=== PATIENT | female | born 1950 | race Caucasian/White ===

== ENCOUNTER → 2016-06-29 | Outpatient (CLI) | payer MEDICARE ==
[2016-06-29 14:13] LABS: CH 34.5; CHCM 33.5; HCT 43.7 % (34.0-46.0); HDW 2.25; HGB 14.5 gm/dL (11.4-16.0); MCH 34.3 pg (25.0-35.0); MCHC 33.2 g/dL (31.0-37.0); MCV 103.4 fL (80.0-100.0); Macrocytosis Slight; Mean Platelet Volume 7.1; RBC 4.23 m/uL (3.80-5.40); RDW 13.7 % (11.5-15.5); WBC 6.3 k/uL (3.8-10.6)
[2016-06-29 14:28] LABS: Anion Gap 9 mmol/L; Blood Urea Nitrogen 15 mg/dL (7-17); Carbon Dioxide 28 mmol/L (22-30); Chloride 103 mmol/L (98-107); Non-African American GFR(MDRD) >60 (>60 ml/min/1.73 sqM); Potassium 4.1 mmol/L (3.5-5.1); Sodium 140 mmol/L (137-145)
== END | disposition home or self-care (01) ==
LOC: LABWHC1 13:20
PROVIDERS: ATTEND Internal Medicine Cardiovascular Disease
DX: Z01.818 Encounter for other preprocedural examination (principal); I25.5 Ischemic cardiomyopathy
CPT/HCPCS: 36415; 80051; 82565; 84520; 85027

== ENCOUNTER 2016-07-11 09:40 | Day surgery (SDC) | payer MEDICARE ==
[2016-07-08 10:40] VITALS: BMI 28.3
[~2016-07-11 09:40] MED LIST: HYDROmorphone 1 MG/ML 1 ML SYRINGE IVP PRN; ONDANSETRON 4 MG/2 ML VIAL IVP ONE; ceFAZolin 1,000 MG in SODIUM CHLORIDE 0.9% IRRIGATIO 250 ML IRRIGATION ONE; ceFAZolin 2 GM in SODIUM CHLORIDE 0.9% 100 ML IVPB ONE
[2016-07-11] MEDS: LACTATED RINGERS 1,000 ML IV SCH (10:14)
[2016-07-11] MEDS ORDERED: SODIUM CHLORIDE 0.9% 1,000 ML IV ONE (10:15)
[2016-07-11] MEDS ORDERED: LIDOCAINE 1% INJ 10MG/ML (20 ML MDV) ONE (11:18)
[2016-07-11] MEDS ORDERED: PROPOFOL 10 MG/ML 20 ML VIAL IV ONE (11:18)
[2016-07-11] MEDS ORDERED: ePHEDrine 50 MG/ML 1 ML AMP ONE (11:18)
[2016-07-11] MEDS ORDERED: fentaNYL (PF) 50 MCG/ML 2 ML AMP ONE (11:18)
[2016-07-11] MEDS ORDERED: MIDAZOLAM 2 MG/2 ML VIAL ONE (11:18)
[2016-07-11] MEDS ORDERED: IOHEXOL 350 MG/ML 50ML BOTTLE INJ ONE (11:30)
[2016-07-11] MEDS ORDERED: IV FLUID CONTINUATION 900 ML IV ONE (11:30)
[2016-07-11] MEDS ORDERED: LIDOCAINE 1% INJ 10MG/ML (20 ML MDV) SQ ONE (11:49)
[2016-07-11] MEDS ORDERED: ACETAMINOPHEN TAB 325 MG TAB PO PRN (12:55)
--- NOTE | 2016-07-11 13:09 | P.PCN ---
Date of Procedure: 07/11/16 Preoperative Diagnosis: Ischemic cardiomyopathy Postoperative Diagnosis: The same Procedure(s) Performed: Prophylactic AICD implantation Description of Procedure: HISTORY: This patient is a 66-year-old female with history of ischemic cardiomyopathy with ejection fraction of 30%. Patient is referred for prophylactic AICD implantation. CONSENT:I have discussed the risks, benefits and alternative therapies for the above-mentioned procedure and for both sedation/analgesia as well as necessary blood product administration, if indicated, as they pertain to this patient. The patient has indicated understanding and acceptance of the risks and procedures discussed. PROCEDURE: Patient was brought to the lab in a fasting state. Patient was prepped and draped in the usual fashion. Patient was given IV sedation with fentanyl and Versed. The skin below the left clavicle was infiltrated with lidocaine. An incision was made parallel to deltopectoral groove was deepened until the pectoral fascia was exposed. A pocket was created by blunt dissection and cautery. Axillary venography was performed to delineate the course of the axillary vein. one stick were performed into extrathoracic portion of the axillary vein and 1sheath was advanced over the guidewires and left in subclavian vein. LEADS: VENTRICULAR: This is manufactured by [employer]. Model number is 0292 and the serial number is [id number]. THE DEVICE: This is manufactured by [employer]. He did model number is D150. Serial number is [id number]. The ventricular lead is maneuvered l with help of a straight and curved stylets into the left ventricle apical region. Satisfactory position was obtained and threshold measurements were made. The atrial lead was then maneuvered into the right atrial appendage. And thresholds were obtained. THRESHOLDS: VENTRICLE : The minimal patient threshold was 0.6 at pulse width of 0.5 ms. R waves 8.2 mV. The impedance is 6 and 95 ohms. The shock impedance is 69. The lead and pulse generator remained in the pocket after it was washed with antibiotics. Pocket was closed in the usual fashion. The fascia was closed with 2-0 Prolene ,the subcutaneous tissue was closed with 3-0 Prolene and the skin was closed with 4-0 Prolene. DFT TESTING: Patient was given deep sedation by department of anesthesia. DFT testing was performed initially with 11 J and also 21 J after inducing V. tach with T shock. This did not convert patient to into sinus rhythm. External defibrillator was used for conversion. Subsequently new site was found and repeat DFT testing was performed and at 21 J successfully converted patient to sinus rhythm. V. tach was induced with T shock. Patient tolerated the procedure very well and PROGRAMMING: KEEGAN PACING: MODE: VVI mode RATE: 40 OUTPUT: ventricle: 3.5 TACHYCARDIA THERAPY: V. TACH: The rate is 1 75 bpm. ATP therapies programmed followed by shocks of 21 J 1 followed by 31 J followed with 41 J 6. Line VF ZONE: This is programmed to a rate of 205. The therapies are programmed to 31 J followed by 41 J 7. FINAL IMPRESSION: #1. Successful Implantation of single-chamber single coil AICD #2. AXILLARY VENOGRAPHY COMPLICATIONS: Nil PLAN: Continue to monitor her on the telemetry unit. Continue prophylactic antibiotics. Chest x-ray in the morning. If patient's remains stable will discharge patient home tomorrow.
[2016-07-11] MEDS: SODIUM CHLORIDE 0.9% 1,000 ML IV SCH (16:22)
[2016-07-11] MEDS: ceFAZolin 2 GM in SODIUM CHLORIDE 0.9% 100 ML IVPB SCH ×2 (17:08→22:26)
[2016-07-11] MEDS: METOPROLOL TARTRATE 25 MG TAB PO SCH (20:33)
[2016-07-11] MEDS ORDERED: ATORVASTATIN 80 MG TAB PO SCH (21:00)
[2016-07-12] MEDS: LACTATED RINGERS 1,000 ML IV SCH (06:51)
[2016-07-12] MEDS: SODIUM CHLORIDE 0.9% 1,000 ML IV SCH (06:51)
[2016-07-12] MEDS: ceFAZolin 2 GM in SODIUM CHLORIDE 0.9% 100 ML IVPB SCH ×2 (06:51→10:40)
--- NOTE | 2016-07-12 08:31 | XR ---
EXAMINATION TYPE: XR chest 2V DATE OF EXAM: 07/12/2016 6:16 AM COMPARISON: 05/19/2012 TECHNIQUE: PA and lateral views submitted. HISTORY: Lead placement check FINDINGS: The lungs are clear and there is no pneumothorax, pleural effusion, or focal pneumonia. Hypertrophi c degenerative change of the spine, postoperative change and cardiac device noted with the lead overl jeffery the region of the right ventricle. Atherosclerotic change aorta. Prominence the pulmonary arteries are stable suggestive of pulmonary ar terial hypertension. IMPRESSION: 1. No acute process. Cardiac lead appears in good position. 2. Prominence of the hilum and pulmonary arteries bilaterally correlate for pulmonary arterial hypert ension. Follow-up CT scan could be obtained.
[2016-07-12] MEDS ORDERED: NON-FORMULARY DRUG (Calcium/Magnesium/Zinc [Calcium-Magnesium-Zinc Tablet] 1 EACH) PO SCH (09:00)
[2016-07-12] MEDS ORDERED: LISINOPRIL 5 MG TAB PO SCH (09:00)
[2016-07-12] MEDS: METOPROLOL TARTRATE 25 MG TAB PO SCH (09:15)
--- NOTE | 2016-07-12 09:56 | P.DS ---
Providers Expected date of discharge: 07/12/16 Attending physician: Isauro Ordoñez Primary care physician: Hieu Campoverde - Discharge Diagnosis(es) (1) Ischemic cardiomyopathy Current Visit: Yes Status: Acute (2) AICD (automatic cardioverter/defibrillator) present Current Visit: Yes Status: Acute Hospital Course: This patient with history of ischemic cardiomyopathy was brought in for elective AICD implantation. Patient had procedure done yesterday. Patient tolerated the procedure well. Initial position did not reveal satisfactory. DFT threshold. Subsequently a new position was found, and DFT testing showed satisfactory threshold. Patient has remained stable overnight. Denies any chest pain, shortness of breath, dizziness or syncope. No arrhythmias were detected. Chest x-ray shows proper lead position. There is no evidence of pneumothorax. Thresholds remained stable. Patient site shows some puffiness and possible mild hematoma. Patient is advised to keep the area dry. She is advised not to lift left arm above the shoulder level. No heavy lifting, pushing, pulling or driving. She will be sent home on home medication. Aspirin to be held until patient's in the office. Patient's have follow-up in the office in one week. The rest of the medication be continued. She is also being put on Keflex 500 mg by mouth 3 times a day. Follow-up with Dr. Izquierdo. Plan - Discharge Summary New Discharge Prescriptions: Cephalexin [Keflex] 500 mg PO Q8HR #10 cap Discharge Medication List Atorvastatin [Lipitor] 80 mg PO HS 07/08/16 [History] Calcium/Magnesium/Zinc [Ivjgbgi-Akhctbzdz-Yzty Tablet] 1 each PO DAILY 07/08/16 [History] Lisinopril [Zestril] 5 mg PO QAM 07/08/16 [History] Metoprolol Tartrate 25 mg PO BID 07/08/16 [History] Multivitamins, Thera [Multivitamin (formulary)] 1 tab PO DAILY 07/08/16 [History ] Cephalexin [Keflex] 500 mg PO Q8HR #10 cap 07/12/16 [Rx] Follow up Appointment(s)/Referral(s): Kavon Izquierdo MD [STAFF PHYSICIAN] - 1 Week Discharge Disposition: HOME SELF-CARE
[2016-07-12] MEDS ORDERED: MULTIVITAMINS, THERA 1 EACH TAB PO SCH (12:00)
[2016-07-12 12:47] VITALS: BP 110/63; PULSE 62; RESP 16; TEMP 98.1
== END 2016-07-12 13:20 | disposition home or self-care (01) ==
LOC: CATHEP 09:40 → 3OBS 12:55 → CATHEP 07-12 13:20
PROVIDERS: ATTEND Internal Medicine Cardiovascular Disease
DX: I25.5 Ischemic cardiomyopathy (principal); Z00.6 Encounter for examination for normal comparison and control in clinical research program; I65.23 Occlusion and stenosis of bilateral carotid arteries; Z82.49 Family history of ischemic heart disease and other diseases of the circulatory system; E78.5 Hyperlipidemia, unspecified; I10 Essential (primary) hypertension; Z79.82 Long term (current) use of aspirin; Z79.899 Other long term (current) drug therapy
CPT/HCPCS: 93641; 33249; 71020; C1895; C1722; J2250; J0690 ×3; J2001; J3010; J2704; Q9967

== ENCOUNTER 2017-03-15 13:08 | Emergency (ER) | payer MEDICARE ==
[2017-03-15] MEDS ORDERED: SODIUM CHLORIDE 0.9% 500 ML IV STA (14:06)
--- NOTE | 2017-03-15 14:17 | ED ---
General Adult HPI - General Chief complaint: Weakness Stated complaint: Weakness/ Pt has defibaltor Time Seen by Provider: 03/15/17 13:57 Source: patient Mode of arrival: wheelchair Limitations: no limitations - History of Present Illness Initial comments: This is a 66-year-old female with a history of CAD, CHF, CAD who presents here in [facility] for generalized fatigue. She states that it's been going on for the last month however worsen over the last week. She states that she's had it intermittently for "a while ". She states that it just seems to be constant now and worse. She has not had this worked up in the past however she has mentioned it to her primary doctor in the past. She states that at times she feels so weak that she cannot even stand up. She has to sit down. She states that her energy just feels drained from her body. She has no focal weakness. Denies any headaches or head trauma. Does admit to a little bit of some neck and back pain which is also been going on for the last month. Denies any nausea , vomiting, or diarrhea. No dysuria or hematuria. Has a normal amount of urine output. Denies any lower extremity swelling or pain. Does admit to cold intolerance. Denies any other acute complaints. - Related Data Home Medications Medication Instructions Recorded Confirmed Atorvastatin [Lipitor] 80 mg PO HS 07/08/16 03/15/17 Lisinopril [Zestril] 5 mg PO DAILY 07/08/16 03/15/17 Metoprolol Tartrate 25 mg PO BID 07/08/16 03/15/17 ALPRAZolam [Xanax] 0.5 mg PO TID PRN 03/15/17 03/15/17 Allergies Allergy/AdvReac Type Severity Reaction Status Date / Time No Known Allergies Allergy Verified 03/15/17 14:39 Review of Systems ROS Statement: Those systems with pertinent positive or pertinent negative responses have been documented in the HPI. ROS Other: All systems not noted in ROS Statement are negative. Past Medical History Past Medical History: COPD, Myocardial Infarction ([place]) History of Any Multi-Drug Resistant Organisms: None Reported Past Surgical History: Heart Catheterization With Stent Additional Past Surgical History / Comment(s): Open heart surgery, defibrilator placement Past Psychological History: No Psychological Hx Reported Smoking Status: Never smoker Past Alcohol Use History: Rare Past Drug Use History: None Reported General Exam - General Exam Comments Initial Comments: Constitutional: Awake alert Appears comfortable Head: Normocephalic atraumatic Eyes: no conjunctival injection No scleral icterus EOMI pupils are 4 mm reactive bilaterally ENT: TMs clear bilaterally, oropharynx is not erythematous Neck: No JVD Supple Heart: Regular rate rhythm normal S1-S2 no murmurs Lungs: Clear to auscultation bilaterally No wheezing No rales Abdomen: Soft nondistended nontender Extremities: Non edematous DP pulses intact Radial pulses intact Neuro: A&Ox3, cranial nerves II through XII are grossly intact, 5 out of 5 strength in upper and lower extremities bilaterally, sensation intact in all extremities, normal finger to nose and heel to riggs testing No focal neurologic deficits Psych: Appropriate mood and affect Limitations: no limitations Course Vital Signs 03/15/17 13:18 Temperature 99.4 F Pulse Rate 67 Respiratory 18 Rate Blood Pressure 139/63 O2 Sat by Pulse 97 Oximetry EKG Findings - EKG Comments: EKG Findings:: EKG showing normal sinus rhythm with a rate of 63. There are no abnormal ST segment changes. There are T-wave inversions in V4 through V6 and there is artifact so it is difficult to determine extent of changes. QTC is 435. Other intervals are normal. No ectopy. Medical Decision Making - Medical Decision Making Is a 66-year-old female presents emergency department for generalized fatigue. Patient was evaluated and had no focal neurologic findings. Labwork was performed including a TSH which was not abnormal area the patient does have a known history of CHF with an EF of 30%. I'm wondering if she is having worsening heart function that's causing her fatigue. Told that she is to follow closely with her junior paralegal and possibly have a repeat echocardiogram performed. Otherwise she needs to call follow-up closely with her primary doctor for further evaluation of this. She can return if she has worsening or changing symptoms. All questions were answered. - Lab Data Result diagrams: 03/15/17 14:30 03/15/17 14:30 Lab Results 03/15/17 03/15/17 03/15/17 Range/Units 14:30 14:30 14:30 WBC 7.4 (3.8-10.6) k/uL RBC 4.33 (3.80-5.40) m/uL Hgb 14.2 (11.4-16.0) gm/dL Hct 44.6 (34.0-46.0) % MCV 103.1 H (80.0-100.0) fL MCH 32.8 (25.0-35.0) pg MCHC 31.8 (31.0-37.0) g/dL RDW 14.3 (11.5-15.5) % Plt Count 215 (150-450) k/uL Neutrophils % 63 % Lymphocytes % 26 % Monocytes % 6 % Eosinophils % 3 % Basophils % 1 % Neutrophils # 4.7 (1.3-7.7) k/uL Lymphocytes # 1.9 (1.0-4.8) k/uL Monocytes # 0.4 (0-1.0) k/uL Eosinophils # 0.2 (0-0.7) k/uL Basophils # 0.1 (0-0.2) k/uL Macrocytosis Slight PT (9.0-12.0) sec INR (<1.2) APTT (22.0-30.0) sec Sodium 142 (137-145) mmol/L Potassium 4.6 (3.5-5.1) mmol/L Chloride 103 (98-107) mmol/L Carbon Dioxide 28 (22-30) mmol/L Anion Gap 11 mmol/L BUN 19 H (7-17) mg/dL Creatinine 0.80 (0.52-1.04) mg/dL Est GFR (MDRD) Af Amer >60 (>60 ml/min/1.73 sqM) Est GFR (MDRD) Non-Af >60 (>60 ml/min/1.73 sqM) Glucose 96 (74-99) mg/dL Calcium 10.2 (8.4-10.2) mg/dL Magnesium 1.9 (1.6-2.3) mg/dL Total Bilirubin 0.4 (0.2-1.3) mg/dL AST 34 (14-36) U/L ALT 41 (9-52) U/L Alkaline Phosphatase 72 (38-126) U/L CK-MB (CK-2) 1.1 (0.0-2.4) ng/mL Troponin I <0.012 (0.000-0.034) ng/mL NT-Pro-B Natriuret Pep pg/mL Total Protein 7.5 (6.3-8.2) g/dL Albumin 4.6 (3.5-5.0) g/dL TSH 0.427 L (0.465-4.680) mIU/L Urine Color Urine Appearance (Clear) Urine pH (5.0-8.0) Ur Specific [place] (1.001-1.035) Urine Protein (Negative) Urine Glucose (UA) (Negative) Urine Ketones (Negative) Urine Blood (Negative) Urine Nitrite (Negative) Urine Bilirubin (Negative) Urine Urobilinogen (<2.0) mg/dL Ur Leukocyte Esterase (Negative) 03/15/17 03/15/17 03/15/17 Range/Units 14:30 14:30 14:30 WBC (3.8-10.6) k/uL RBC (3.80-5.40) m/uL Hgb (11.4-16.0) gm/dL Hct (34.0-46.0) % MCV (80.0-100.0) fL MCH (25.0-35.0) pg MCHC (31.0-37.0) g/dL RDW (11.5-15.5) % Plt Count (150-450) k/uL Neutrophils % % Lymphocytes % % Monocytes % % Eosinophils % % Basophils % % Neutrophils # (1.3-7.7) k/uL Lymphocytes # (1.0-4.8) k/uL Monocytes # (0-1.0) k/uL Eosinophils # (0-0.7) k/uL Basophils # (0-0.2) k/uL Macrocytosis PT 10.2 (9.0-12.0) sec INR 1.0 (<1.2) APTT 23.7 (22.0-30.0) sec Sodium (137-145) mmol/L Potassium (3.5-5.1) mmol/L Chloride (98-107) mmol/L Carbon Dioxide (22-30) mmol/L Anion Gap mmol/L BUN (7-17) mg/dL Creatinine (0.52-1.04) mg/dL Est GFR (MDRD) Af Amer (>60 ml/min/1.73 sqM) Est GFR (MDRD) Non-Af (>60 ml/min/1.73 sqM) Glucose (74-99) mg/dL Calcium (8.4-10.2) mg/dL Magnesium (1.6-2.3) mg/dL Total Bilirubin (0.2-1.3) mg/dL AST (14-36) U/L ALT (9-52) U/L Alkaline Phosphatase (38-126) U/L CK-MB (CK-2) (0.0-2.4) ng/mL Troponin I (0.000-0.034) ng/mL NT-Pro-B Natriuret Pep 708 pg/mL Total Protein (6.3-8.2) g/dL Albumin (3.5-5.0) g/dL TSH (0.465-4.680) mIU/L Urine Color Colorless Urine Appearance Clear (Clear) Urine pH 5.5 (5.0-8.0) Ur Specific [place] 1.002 (1.001-1.035) Urine Protein Negative (Negative) Urine Glucose (UA) Negative (Negative) Urine Ketones Negative (Negative) Urine Blood Negative (Negative) Urine Nitrite Negative (Negative) Urine Bilirubin Negative (Negative) Urine Urobilinogen <2.0 (<2.0) mg/dL Ur Leukocyte Esterase Negative (Negative) Disposition Clinical Impression: Fatigue Disposition: HOME SELF-CARE Condition: Stable Instructions: Fatigue (ED) Referrals: Hieu Campoverde DO [Primary Care Provider] - 1-2 days Kavon Izquierdo MD [STAFF PHYSICIAN] - 1-2 days
[2017-03-15 14:46] LABS: Basophils # (A) 0.1 k/uL (0-0.2); Basophils % (A) 1 %; Eosinophils # (A) 0.2 k/uL (0-0.7); Eosinophils % (A) 3 %; HCT 44.6 % (34.0-46.0); HGB 14.2 gm/dL (11.4-16.0); Lymphocytes # (A) 1.9 k/uL (1.0-4.8); Lymphocytes % (A) 26 %; MCH 32.8 pg (25.0-35.0); MCHC 31.8 g/dL (31.0-37.0); MCV 103.1 fL (80.0-100.0); Macrocytosis Slight; Mean Platelet Volume 7.3; Monocytes # (A) 0.4 k/uL (0-1.0); Monocytes % (A) 6 %; Neutrophils # (A) 4.7 k/uL (1.3-7.7); Neutrophils % (A) 63 %; Platelet Count 215 k/uL (150-450); RBC 4.33 m/uL (3.80-5.40); RDW 14.3 % (11.5-15.5); WBC 7.4 k/uL (3.8-10.6)
[2017-03-15 14:47] LABS: Appearance,Urine Clear (Clear); Bilirubin,Urine Negative (Negative); Blood,Urine Negative (Negative); Color,Urine Colorless; Glucose,Urine (UA) Negative (Negative); Ketones,Urine Negative (Negative); Leukocyte Esterase,Urine Negative (Negative); Nitrite,Urine Negative (Negative); PH, Urine 5.5 (5.0-8.0); Protein,Urine Negative (Negative); Specific Gravity,Urine 1.002 (1.001-1.035); Urobilinogen,Urine <2.0 mg/dL (<2.0)
--- NOTE | 2017-03-15 14:51 | XR ---
EXAMINATION TYPE: XR chest 2V DATE OF EXAM: 03/15/2017 COMPARISON: 07/12/2016 HISTORY: Fatigue and weakness. TECHNIQUE: Frontal and lateral views of the chest are obtained. FINDINGS: There is no focal air space opacity, pleural effusion, or pneumothorax seen. The cardiac silhouette size is mildly enlarged. Single lead left-sided cardiac device is seen with post CABG radha nges the chest. The osseous structures are intact. Multilevel mild degenerative changes of the thorac ic spine are noted as well as of the glenohumeral joints. There is redemonstration of hilar vascular prominence which again could correlate with underlying pulmonary hypertension. IMPRESSION: No acute cardiopulmonary process. Redemonstration of hilar prominence that may correlate with underlying pulmonary arterial hypertension.
[2017-03-15 15:04] LABS: ALT 41 U/L (9-52); AST 34 U/L (14-36); Albumin 4.6 g/dL (3.5-5.0); Alkaline Phosphatase 72 U/L (38-126); Anion Gap 11 mmol/L; Blood Urea Nitrogen 19 mg/dL (7-17); Calcium 10.2 mg/dL (8.4-10.2); Carbon Dioxide 28 mmol/L (22-30); Chloride 103 mmol/L (98-107); Glucose 96 mg/dL (74-99); Magnesium 1.9 mg/dL (1.6-2.3); Potassium 4.6 mmol/L (3.5-5.1); Sodium 142 mmol/L (137-145); Total Bilirubin 0.4 mg/dL (0.2-1.3); Total Protein 7.5 g/dL (6.3-8.2)
[2017-03-15 15:20] LABS: Partial Thromboplastin Time 23.7 sec (22.0-30.0); Prothrombin Time 10.2 sec (9.0-12.0)
[2017-03-15 15:22] LABS: Creatine Kinase MB 1.1 ng/mL (0.0-2.4); Troponin I <0.012 ng/mL (0.000-0.034)
[2017-03-15 16:12] LABS: T4, Free (Free Thyroxine) 1.09 ng/dL (0.78-2.19)
[2017-03-15 16:15] VITALS: BP 143/60; PULSE 62; RESP 20; TEMP 98.1
== END 2017-03-15 16:16 | disposition home or self-care (01) ==
LOC: EC 13:08
DX: R53.83 Other fatigue (principal); M54.2 Cervicalgia; M54.9 Dorsalgia, unspecified; R68.89 Other general symptoms and signs; I25.10 Atherosclerotic heart disease of native coronary artery without angina pectoris; I50.9 Heart failure, unspecified; I25.2 Old myocardial infarction; Z79.899 Other long term (current) drug therapy
CPT/HCPCS: 36415; 71046; 80053; 81003; 82553; 83735; 83880; 84439; 84443; 84484; 85025; 85610; 85730; 93005; 99285

== ENCOUNTER → 2017-09-05 | Outpatient (CLI) | payer MEDICARE ==
[2017-09-05 10:12] LABS: ALT 44 U/L (9-52); AST 32 U/L (14-36); Cholesterol 139 mg/dL (<200); HDL Cholesterol 58 mg/dL (40-60); LDL Cholesterol,Calculated 69 mg/dL (0-99); Triglycerides 58 mg/dL (<150)
== END | disposition home or self-care (01) ==
LOC: LABWHC1 09:02
PROVIDERS: ATTEND Internal Medicine Cardiovascular Disease
DX: E78.2 Mixed hyperlipidemia (principal)
CPT/HCPCS: 36415; 80061; 84450; 84460

== ENCOUNTER → 2018-02-21 | Outpatient (CLI) | payer MEDICARE ==
--- NOTE | 2018-02-21 11:24 | CT ---
EXAMINATION TYPE: CT angio abd aorta w/Runoff DATE OF EXAM: 02/21/2018 COMPARISON: None HISTORY: Aneurysm of artery of lower extremity, pseudoaneurysm of right femoral artery CT DLP: 1382.3 mGycm CONTRAST: CTA thoracic and abdominal aorta with 3-D reconstruction is performed and without and with IV Contras t, patient injected with 125 mL of Isovue 370. Contrast CTA of the abdominal aorta with runoff of the lower extremity arterial system was performed from the lung bases through the ankles and feet. 3-D reconstruction imaging obtained at a separate wo rkstation. ABDOMINAL AORTA: Aortoiliac stent graft is noted to be place. There is no evidence for endoleak. Kelley l arteries, SMA, celiac artery and CHELSEA are patent. Renal artery calcifications noted. Infrarenal abdo gurpreet aortic aneurysm measures 3.4 cm AP dimension. Iliac vessels: Common iliac arteries are patent bilaterally. There is diffuse plaque formation noted bilaterally of the bilateral common iliac arteries with 50% stenosis noted on the right and less than 50% on the left. Diffuse calcified plaque is noted of the external iliac arteries bilaterally with 5 0% diameter reduction noted proximal component on the right. Less than 30% stenosis noted left radiagraph operator al iliac artery. Internal iliac arteries are patent bilaterally. Diffuse atheromatous changes noted a s well. Femoral arteries: There is mass noted anterior to the right femoral artery which measures 4.6 x 5.5 c m. Precontrast Hounsfield unit measurement remains stable following administration of contrast at 66 Hounsfield units. This may reflect a thrombosed pseudoaneurysm or hematoma. Soft and calcified plaque noted of the bilateral femoral arteries with multifocal less than 30% stenosis seen bilaterally. Sup erficial femoral arteries demonstrate diffuse calcified plaque disease greatest distally left greater than right with 70% stenosis noted on the left and approximately 50% seen on the right. Popliteal arteries: Popliteal arteries are patent bilaterally with only mild plaque formation noted. Below the knee arteries: Trifurcation is patent bilaterally. Peroneal, anterior and posterior tibial arteries demonstrate mild calcific disease without evidence for hemodynamically significant stenosis. Limited runoff of the ankles and feet given timing of the contrast bolus. LIVER/GB- No significant abnormality is seen. PANCREAS- No significant abnormality is seen. SPLEEN- No significant abnormality is seen. ADRENALS- No significant abnormality is seen. KIDNEYS/BLADDER- No significant abnormality is seen. BOWEL- No Significant abnormality GENITAL ORGANS: No gross abnormality seen. LYMPH NODES- No greater than 1cm abdominal or pelvic lymph nodes are appreciated. OSSEOUS STRUCTURES- No significant abnormality is seen. OTHER- No significant abnormality is seen. IMPRESSION- 1. Aortoiliac stent graft without evidence for endoleak. Venetie Ira infrarenal abdominal aortic aneurysm as noted. 2. Suspect thrombosed right femoral artery pseudoaneurysm or hematoma. 3. Diffuse plaque disease as noted above.
== END | disposition home or self-care (01) ==
LOC: RADCTMAIN 08:42
PROVIDERS: ATTEND Surgery
DX: I70.202 Unspecified atherosclerosis of native arteries of extremities, left leg (principal); I70.291 Other atherosclerosis of native arteries of extremities, right leg; I71.4 Abdominal aortic aneurysm, without rupture; I72.4 Aneurysm of artery of lower extremity; I72.9 Aneurysm of unspecified site
CPT/HCPCS: 82565; 84520; 75635; 36415; Q9967

== ENCOUNTER → 2018-06-21 | Outpatient (CLI) | payer MEDICARE ==
--- NOTE | 2018-06-21 11:33 | CT ---
EXAMINATION TYPE: CT abdomen pelvis w con DATE OF EXAM: 06/21/2018 HISTORY: Nausea, vomiting, constipation, and generalized pain. CT DLP: 444.3mGycm Automated Exposure Control for Dose Reduction was Utilized. CONTRAST: CT scan of the abdomen and pelvis is performed with IV Contrast, patient injected with 100 mL of Isov ue 300. COMPARISON: None. FINDINGS: LUNG BASES: Minimal bibasilar subsegmental dependent atelectasis. Visualized portions of the heart ar e enlarged. LIVER/GB: There are few too small to accurately characterize hepatic lesions that are hypoattenuated measuring up to 6 mm. No greater than 1 cm hepatic mass. No intrahepatic biliary ductal dilatation. C holelithiasis. Hepatic steatosis is noted. This limits evaluation for hepatic masses. PANCREAS: No significant abnormality is seen. SPLEEN: No significant abnormality is seen. ADRENALS: No significant abnormality is seen. KIDNEYS: Punctate nonobstructing right midpole 3 mm calculus is present as seen on the prior as well as multiple other smaller renal arterial calculi on coronal images. Left renal calculus measures up t o 7 mm. Too small to accurately characterize left upper pole renal lesion is seen on image 20 measuri ng only 3 mm. No hydronephrosis of either kidney. Slight prominence of the right renal pelvis is unch anged from the prior. BOWEL: There are scattered colonic diverticula without pericolonic fat stranding. Mild degree retaine d colonic stool limits evaluation of the transverse descending as well as sigmoid colon. There is no dilated large or small bowel however there is bowel wall prominence of multiple loops of small bowel scattered in the mid and upper central abdomen. Appendix is air-filled and within normal limits of si ze. UTERUS/ADNEXA: Right ovarian lesion measures 2.6 x 3.0 cm, similar to the prior exam. LYMPH NODES: No greater than 1cm abdominal or pelvic lymph nodes are appreciated. OSSEOUS STRUCTURES: No significant abnormality is seen. VASCULATURE: There is redemonstration of an infrarenal abdominal aortic aneurysm measuring up to 4.0 x 3.6 cm, unchanged in size from the prior of 2018 when measured at a similar location. Aortobiiliac endovascular stent graft is again noted. OTHER: The previously seen 5.6 cm right inguinal mass has decreased in size now measuring up to 1.7 c m, likely representing a resolving hematoma with pseudoaneurysm less likely. IMPRESSION: 1. Multiple loops of centralized small bowel containing small bowel thickening in may relate to enter itis of infectious or inflammatory etiology. Lack of haustration of the descending colon and be seen in sequela of colitis or as a result of peristalsis. No dilated large bowel. Moderate fecal stasis. C olonic diverticulosis without evidence of acute diverticulitis. 2. Stable infrarenal abdominal aortic aneurysm with aortobiiliac endovascular stent graft. 3. Bilateral nonobstructing renal calculi. 4. Right superficial inguinal mass has markedly decreased from the prior and likely represents a near ly completely resolved hematoma or less likely pseudoaneurysm.
== END | disposition home or self-care (01) ==
LOC: RADCTMAIN 09:21
PROVIDERS: ATTEND Family Medicine
DX: K57.30 Diverticulosis of large intestine without perforation or abscess without bleeding (principal); N20.0 Calculus of kidney; R19.5 Other fecal abnormalities; I71.4 Abdominal aortic aneurysm, without rupture; Z95.828 Presence of other vascular implants and grafts
CPT/HCPCS: 82565; 84520; 74177; 36415; Q9967

== ENCOUNTER 2018-07-21 03:14 | Observation (INO) | payer MEDICARE ==
[2018-07-21 04:02] LABS: Basophils % (A) 0 %; Eosinophils # (A) 0.1 k/uL (0-0.7); Eosinophils % (A) 1 %; HCT 33.5 % (34.0-46.0); HGB 10.7 gm/dL (11.4-16.0); Lymphocytes # (A) 1.8 k/uL (1.0-4.8); Lymphocytes % (A) 15 %; MCH 31.7 pg (25.0-35.0); MCHC 31.9 g/dL (31.0-37.0); MCV 99.2 fL (80.0-100.0); Macrocytosis Slight; Mean Platelet Volume 6.7; Monocytes # (A) 0.6 k/uL (0-1.0); Monocytes % (A) 5 %; Neutrophils # (A) 9.5 k/uL (1.3-7.7); Neutrophils % (A) 78 %; Platelet Count 240 k/uL (150-450); RBC 3.38 m/uL (3.80-5.40); RDW 15.8 % (11.5-15.5); WBC 12.2 k/uL (3.8-10.6)
[2018-07-21] MEDS ORDERED: cloNIDine HCL 0.2 MG TAB PO STA (04:02)
[2018-07-21 04:11] LABS: Calcium 9.3 mg/dL (8.4-10.2); Potassium 4.1 mmol/L (3.5-5.1)
[2018-07-21 04:12] LABS: INR 1.1 (<1.2); Partial Thromboplastin Time 24.6 sec (22.0-30.0); Prothrombin Time 11.8 sec (9.0-12.0)
--- NOTE | 2018-07-21 04:14 | ED ---
ENT HPI - General Chief complaint: ENT Stated complaint: nose bleed Time Seen by Provider: 07/21/18 03:33 Source: patient Mode of arrival: ambulatory Limitations: no limitations - History of Present Illness Initial comments: This patient is a 68-year-old woman who presents with complaint of epistaxis. The patient states that the bleeding started yesterday in the morning. She states that she was seen at [facility] where she had a packing placed multiple times which slowed her bleeding. The patient states that over the course of yesterday and tonight she has continued to have a small amount of blood. She states she has coughed up some blood and she also believes she has swallowed some as she has passed some stool with what appears to be dark blood. MD complaint: epistaxis -: hour(s) (48) Location: nose Severity: mild Consistency: constant Improves with: other (Packing) Worsens with: none - Related Data Home Medications Medication Instructions Recorded Confirmed Atorvastatin [Lipitor] 80 mg PO HS 07/08/16 03/15/17 Lisinopril [Zestril] 5 mg PO DAILY 07/08/16 03/15/17 Metoprolol Tartrate 25 mg PO BID 07/08/16 03/15/17 ALPRAZolam [Xanax] 0.5 mg PO TID PRN 03/15/17 03/15/17 Allergies Allergy/AdvReac Type Severity Reaction Status Date / Time No Known Allergies Allergy Verified 07/21/18 03:23 Review of Systems ROS Statement: Those systems with pertinent positive or pertinent negative responses have been documented in the HPI. ROS Other: All systems not noted in ROS Statement are negative. Constitutional: Denies: fever, chills ENT: Reports: epistaxis Respiratory: Denies: cough, dyspnea Cardiovascular: Denies: chest pain, palpitations, syncope Gastrointestinal: Denies: abdominal pain, nausea, vomiting Musculoskeletal: Denies: back pain Skin: Denies: rash Neurological: Denies: headache, weakness, numbness Hematological/Lymphatic: Reports: other (Patient taking Plavix, has held this medication since yesterday.) Past Medical History Past Medical History: COPD, Myocardial Infarction ([place]) History of Any Multi-Drug Resistant Organisms: None Reported Past Surgical History: Heart Catheterization With Stent Additional Past Surgical History / Comment(s): Open heart surgery, defibrilator placement Past Psychological History: No Psychological Hx Reported Smoking Status: Current some day smoker Past Alcohol Use History: Rare Past Drug Use History: None Reported General Exam Limitations: no limitations General appearance: alert, in no apparent distress Head exam: Present: atraumatic, normocephalic ENT exam: Present: other (The patient has a balloon packing in the right naris. There is no active bleeding anteriorly. Inspection oropharynx reveals that there is clot hanging posteriorly but I do not see any active red blood.) Respiratory exam: Present: normal lung sounds bilaterally. Absent: respiratory distress, wheezes, rales, rhonchi, stridor Cardiovascular Exam: Present: regular rate, normal rhythm, normal heart sounds. Absent: systolic murmur, diastolic murmur, rubs, gallop GI/Abdominal exam: Present: soft. Absent: distended, tenderness, guarding, rebound, rigid Extremities exam: Present: normal inspection, normal capillary refill. Absent: pedal edema Neurological exam: Present: alert Skin exam: Present: warm, dry, intact, normal color. Absent: rash Course Vital Signs 07/21/18 07/21/18 07/21/18 03:17 03:30 03:50 Temperature 98.4 F Pulse Rate 42 L 81 Respiratory 18 19 Rate Blood Pressure 124/47 124/56 158/57 O2 Sat by Pulse 96 95 Oximetry 07/21/18 07/21/18 07/21/18 04:10 04:20 04:40 Temperature Pulse Rate 84 84 85 Respiratory 22 18 27 H Rate Blood Pressure 153/67 164/72 167/72 O2 Sat by Pulse 96 96 97 Oximetry 07/21/18 07/21/18 04:50 05:00 Temperature Pulse Rate 85 75 Respiratory 24 22 Rate Blood Pressure 168/71 168/71 O2 Sat by Pulse 96 94 L Oximetry Medical Decision Making - Medical Decision Making Patient is 68-year-old woman who continues to have slow ooze of blood following having had nasal packing. Case is discussed with Dr. Benitez who is on-call for ENT tonight. He will admit the patient to observation, and then will see the patient to continue evaluation and treatment. - Lab Data Result diagrams: 07/21/18 03:40 07/21/18 03:40 Lab Results 07/21/18 07/21/18 07/21/18 Range/Units 03:40 03:40 03:40 WBC 12.2 H (3.8-10.6) k/uL RBC 3.38 L (3.80-5.40) m/uL Hgb 10.7 L (11.4-16.0) gm/dL Hct 33.5 L (34.0-46.0) % MCV 99.2 (80.0-100.0) fL MCH 31.7 (25.0-35.0) pg MCHC 31.9 (31.0-37.0) g/dL RDW 15.8 H (11.5-15.5) % Plt Count 240 (150-450) k/uL Neutrophils % 78 % Lymphocytes % 15 % Monocytes % 5 % Eosinophils % 1 % Basophils % 0 % Neutrophils # 9.5 H (1.3-7.7) k/uL Lymphocytes # 1.8 (1.0-4.8) k/uL Monocytes # 0.6 (0-1.0) k/uL Eosinophils # 0.1 (0-0.7) k/uL Basophils # 0.0 (0-0.2) k/uL Macrocytosis Slight PT (9.0-12.0) sec INR (<1.2) APTT (22.0-30.0) sec Sodium 137 (137-145) mmol/L Potassium 4.1 (3.5-5.1) mmol/L Chloride 108 H (98-107) mmol/L Carbon Dioxide 20 L (22-30) mmol/L Anion Gap 9 mmol/L BUN 40 H (7-17) mg/dL Creatinine 0.88 (0.52-1.04) mg/dL Est GFR (CKD-EPI)AfAm 78 (>60 ml/min/1.73 sqM) Est GFR (CKD-EPI)NonAf 68 (>60 ml/min/1.73 sqM) Glucose 106 H (74-99) mg/dL Calcium 9.3 (8.4-10.2) mg/dL Blood Type O Positive Blood Type Recheck No Antibody Screen NEGATIVE Spec Expiration Date 07/24/2018 - 233907/21/18 Range/Units 03:40 WBC (3.8-10.6) k/uL RBC (3.80-5.40) m/uL Hgb (11.4-16.0) gm/dL Hct (34.0-46.0) % MCV (80.0-100.0) fL MCH (25.0-35.0) pg MCHC (31.0-37.0) g/dL RDW (11.5-15.5) % Plt Count (150-450) k/uL Neutrophils % % Lymphocytes % % Monocytes % % Eosinophils % % Basophils % % Neutrophils # (1.3-7.7) k/uL Lymphocytes # (1.0-4.8) k/uL Monocytes # (0-1.0) k/uL Eosinophils # (0-0.7) k/uL Basophils # (0-0.2) k/uL Macrocytosis PT 11.8 (9.0-12.0) sec INR 1.1 (<1.2) APTT 24.6 (22.0-30.0) sec Sodium (137-145) mmol/L Potassium (3.5-5.1) mmol/L Chloride (98-107) mmol/L Carbon Dioxide (22-30) mmol/L Anion Gap mmol/L BUN (7-17) mg/dL Creatinine (0.52-1.04) mg/dL Est GFR (CKD-EPI)AfAm (>60 ml/min/1.73 sqM) Est GFR (CKD-EPI)NonAf (>60 ml/min/1.73 sqM) Glucose (74-99) mg/dL Calcium (8.4-10.2) mg/dL Blood Type Blood Type Recheck Antibody Screen Spec Expiration Date - EKG Data -: EKG Interpreted by Al EKG shows normal: sinus rhythm (With bigeminy, rate 77 bpm), axis (Normal), intervals (KS interval 182 ms, QTC 506 ms, both normal. QRS duration 122 ms, prolonged.), QRS complexes (Nonspecific intraventricular conduction delay.), ST- T waves (There are T inversions anterolaterally.) Rate: normal (Rate 77 bpm) Disposition Clinical Impression: Epistaxis, Anemia Disposition: ADMITTED IP TO THIS [facility] Condition: Fair Is patient prescribed a controlled substance at d/c from ED?: No Referrals: Hieu Campoverde DO [Primary Care Provider] - 1-2 days
[2018-07-21] MEDS ORDERED: ONDANSETRON ODT 4 MG TAB PO STA (04:45)
[2018-07-21] MEDS ORDERED: ALPRAZolam 0.25 MG TAB PO STA (05:27)
[2018-07-21] MEDS ORDERED: ACETAMINOPHEN TAB 325 MG TAB PO PRN (05:57)
[2018-07-21] MEDS ORDERED: NALOXONE 0.4 MG/ML 1 ML VIAL IV PRN (05:57)
[2018-07-21] MEDS ORDERED: ONDANSETRON 4 MG/2 ML VIAL IVP PRN (05:57)
[2018-07-21] MEDS ORDERED: ALPRAZolam 0.5 MG TAB PO PRN (05:58)
[2018-07-21] MEDS ORDERED: HYDROcodone/APAP 5-325MG 1 EACH TAB PO PRN (05:58)
[2018-07-21] MEDS ORDERED: SODIUM CHLORIDE 0.9% 1,000 ML IV SCH (06:00)
[2018-07-21 08:30] VITALS: BP 105/53; PULSE 42; RESP 16; TEMP 98.6
[2018-07-21] MEDS ORDERED: LISINOPRIL 5 MG TAB PO SCH (09:00)
[2018-07-21] MEDS ORDERED: METOPROLOL TARTRATE 25 MG TAB PO SCH (09:00)
[2018-07-21 09:04] VITALS: BMI 25.6
[2018-07-21] MEDS ORDERED: ATORVASTATIN 80 MG TAB PO SCH (21:00)
--- NOTE | 2018-07-23 07:17 | HP ---
HISTORY AND PHYSICAL DATE OF ADMISSION: 07/21/2018. DATE OF DISCHARGE: 07/21/2018. ADMITTING DIAGNOSIS: Right epistaxis. CHIEF COMPLAINT: Right-sided nose bleed. HISTORY OF PRESENT ILLNESS: This patient is a 68-year-old female who states that approximately 2 days prior to her admission that she started having a small intermittent nosebleed. Eventually the bleeding became significant and she was seen in the emergency room on the early a.m. on 07/21/2018 and at that time, the emergency room physician inserted a Epistat nasal balloon in the right nasal chamber and admitted the patient to the observation unit. I was subsequently consulted to see the patient. The patient states that she does not have a history of recurrent nosebleeds. She has not been on any type of blood thinners. In addition to this, she is a nonsmoker. The patient was admitted and placed on the appropriate intravenous and fluids. PAST MEDICAL HISTORY: Past medical history reveals that the patient has no known allergies. MEDICATIONS: Current medications include ProAmatine, metoprolol and Lipitor. REVIEW OF SYSTEMS: Review of systems reveals cardiovascular system is positive for hypertension. RESPIRATORY: Negative. Metabolic/endocrine system is positive for hypercholesterolemia. The remainder of the review of systems is unremarkable. PHYSICAL EXAMINATION: This patient is a 68-year-old female who was alert and cooperative and is in no acute distress. The patient is not actively bleeding. HEENT: The patient is normocephalic. Tympanic membranes are normal. Middle ear space is free of any fluid or infection. Pupils equal, round, react to light and accommodation. Extraocular movements within normal limits. Examination of left naris reveals no evidence of any active bleeding on the left side. The right side is packed with a Epistat double blow nasal packing. The packing is dry and intact. Examination of oropharynx does not reveal any bleeding down the posterior pharynx. Remainder of the head and neck exam including chewed. Cranial nerves 2 through 12 are within normal limits. Chest/cardiovascular: Both lung singh are clear to percussion and auscultation. The patient is in regular sinus rhythm. S1, S2 are present without evidence of any murmurs S3s or S4s. Peripheral pulses are bilaterally symmetrical and within normal limits. The remainder of the physical exam is essentially unremarkable. IMPRESSION: 1. Right anterior/posterior epistaxis. 2. Hypotension. 3. Hypercholesterolemia. PLAN: The patient has been advised that she can be discharged home and therefore will be discharged home and follow up in my office next week after the . She will be given specific written instructions and she will be discharged on the following medications: 1. Zofran 8 mg tablets, #10, 1 p.o. q.6 hours p.r.n. for nausea. 2. Keflex 500 mg p.o. b.i.d. #20. 3. Diflucan 150 mg tablets, #10, 1 p.o. daily p.r.n. She has been advised if any further bleeding occurs, she should immediately return to the emergency room, but when she does, she should make sure to tell the ER personnel not remove her packing. The patient has been advised that her packing will be removed in my office next week. JET / ARTI: [id number] /
--- NOTE | 2018-07-23 07:32 | DS ---
DISCHARGE SUMMARY DATE OF ADMISSION: 07/21/2017 DATE OF DISCHARGE: 07/21/2018. ADMITTING DIAGNOSIS: Right anterior posterior epistaxis. HISTORY OF PRESENT ILLNESS: This patient is a 68-year-old female who has had several intermittent nosebleeds over the past several days and was recently seen in [facility]. At that time, it was noted that she was having significant bleeding from the right naris. The ER physician was unable to initially stop the bleeding, therefore, inserted a double lumen balloon Epistat nasal balloon packing in the right naris. The patient was subsequently admitted. She was placed on appropriate IV fluids and given a regular diet and all of her going home medications were ordered. I had spoke to the emergency room physician at approximately 5:30 am and advised him that she should be admitted to my service. PAST MEDICAL HISTORY: Past medical history reveals patient has no known allergies to medications. MEDICATIONS: Her home medications included ProAmatine, and metoprolol and Lipitor. HOSPITAL COURSE: The patient's hospital course was essentially uneventful and the patient was able to be discharged later on in the afternoon of 07/21/2018. She is discharged with the following instructions that she should leave the nasal balloon in place. If she has any further bleeding, she should return to the emergency room immediately, but she should advise emergency room personnel not to attempt to remove the balloon but simply add more air. I advised her that removing the balloon will only cause more bleeding spots. In addition to this, I have advised if she has to sneeze, she should do so with her mouth open so that the force of the sneeze comes out through the mouth. She will be given several prescriptions to take home, namely Zofran 8 mg tablets, #10, 1 p.o. Q 8 hours p.r.n. for nausea, Keflex 500 mg p.o. b.i.d. #20 and Diflucan tablets 150 mg p.o. daily #10. She is to call my office after on the Monday. At that point, they will schedule her for an appointment the same week. I advised the patient at that time I will remove the packing and start on the appropriate further treatment. Again, she has been advised if any further bleeding occurs, she is to return to the [facility]. All of her questions and her 's questions were answered. The patient was given 1 of my business cards. MMODL / IJN: [id number] /
--- NOTE | 2018-07-25 13:53 | CDI ---
Outpatient Documentation Clarification Form Date: 07-25-18 CDS/Supervisor [employer] Name: SHELLIE RODRÍGUEZ Phone: If any questions, call Henna Muñoz Pharmacy District Manager at [phone] Patient Name: ANIBAL RODRIGUEZ Admit Date: 07-21-18 Discharge Date: 07-21-18 ATTENTION: The [facility] Coding Staff appreciate your assistance in clarifying documentation. Please respond to the clarification below the line at the bottom and electronically sign. The [facility] Coding staff will review the response and follow-up if needed. Please note: Queries are made part of the Legal Health Record. If you have any questions, please contact the Pharmacy District Manager. Dear , Please clarify if the insertion of the nasal balloon was done the in at [facility] or [facility]. Thank you for your kind consideration. MTDD
== END 2018-07-21 15:53 | disposition home or self-care (01) ==
LOC: EC 03:14 → 1SOBS 05:57
PROVIDERS: ADMIT Otolaryngology; ATTEND Otolaryngology
DX: R04.0 Epistaxis (principal); D64.9 Anemia, unspecified; I10 Essential (primary) hypertension; E78.00 Pure hypercholesterolemia, unspecified; I95.9 Hypotension, unspecified; J44.9 Chronic obstructive pulmonary disease, unspecified; I25.2 Old myocardial infarction; Z95.5 Presence of coronary angioplasty implant and graft; Z95.810 Presence of automatic (implantable) cardiac defibrillator; F17.200 Nicotine dependence, unspecified, uncomplicated; Z79.899 Other long term (current) drug therapy; Z79.02 Long term (current) use of antithrombotics/antiplatelets
CPT/HCPCS: 30901; 99284; 36415; 86900; 86901; 80048; 85025; 85610; 85730; 86850; G0378

== ENCOUNTER 2018-09-17 04:31 | Observation (INO) | payer MEDICARE ==
[2018-09-17] MEDS ORDERED: TRANEXAMIC ACID 1,000 MG in SODIUM CHLORIDE 0.9% 100 ML IVPB ONE (04:56)
--- NOTE | 2018-09-17 04:57 | ED ---
ENT HPI - General Chief complaint: ENT Stated complaint: nose bleed Time Seen by Provider: 09/17/18 04:55 Source: patient, family Mode of arrival: ambulatory Limitations: no limitations - History of Present Illness Initial comments: Mily is a pleasant 68-year-old female who is on Plavix for heart stents. Patient presents the emergency department today with a nosebleed. Patient was evaluated in the emergency department for a nosebleed at the end of June, she is placed in observation and evaluated by ENT. Her nosebleed was noted to stop after posterior packing and she subsequently discharged home. Patient reports that her nosebleed began suddenly this morning he awoke her from sleep. She reports that despite direct pressure she is continued to bleed. - Related Data Home Medications Medication Instructions Recorded Confirmed Atorvastatin [Lipitor] 80 mg PO HS 07/08/16 09/17/18 Metoprolol Tartrate 25 mg PO BID 07/08/16 09/17/18 Midodrine HCl [ProAmantine] 2.5 mg PO BID PRN 07/21/18 09/17/18 Aspirin EC [Ecotrin Low Dose] 81 mg PO DAILY 09/17/18 09/17/18 Clopidogrel [Plavix] 75 mg PO DAILY 09/17/18 09/17/18 Allergies Allergy/AdvReac Type Severity Reaction Status Date / Time No Known Allergies Allergy Verified 09/17/18 07:02 Review of Systems ROS Statement: Those systems with pertinent positive or pertinent negative responses have been documented in the HPI. ROS Other: All systems not noted in ROS Statement are negative. Past Medical History Past Medical History: COPD, Myocardial Infarction ([place]) Last Myocardial Infarction Date:: 01/2018 History of Any Multi-Drug Resistant Organisms: None Reported Past Surgical History: Heart Catheterization With Stent Additional Past Surgical History / Comment(s): Open heart surgery, defibrilator placement Past Anesthesia/Blood Transfusion Reactions: No Reported Reaction Date of Last Stent Placement:: unknown Past Psychological History: No Psychological Hx Reported Smoking Status: Current some day smoker Past Alcohol Use History: Rare Past Drug Use History: None Reported - Past Family History Mother Sister(s) Family Medical History: Coronary Artery Disease (CAD), Dementia, Diabetes Mellit Additional Family Medical History / Comment(s): CABG, alzheimers Father Family Medical History: Coronary Artery Disease (CAD), Diabetes Mellitus General Exam - General Exam Comments Initial Comments: Physical Exam GENERAL: Patient is well-developed and well-nourished. Patient is nontoxic and well-hydrated and is in no distress. HENT: Normocephalic, Atraumatic. Bleeding from the right naris. Bleeding is rather brisk and is not possible to tell whether it is anterior posterior that the patient is hemodynamically stable EYES: PERRL, EOMI No conjunctival pallor PULMONARY: Unlabored respirations. No audible rales rhonchi or wheezing was noted. CARDIOVASCULAR: There is a regular rate and rhythm without any murmurs gallops or rubs. ABDOMEN: Soft and nontender with normal bowel sounds. SKIN: Skin is clear with no lesions or rashes and otherwise unremarkable. : Deferred NEUROLOGIC: Patient is alert and oriented x3. Moving all extremities spontaneously MUSCULOSKELETAL: Normal extremities with adequate strength and full range of motion. No lower extremity swelling or edema. No calf tenderness. PSYCHIATRIC: Normal psychiatric evaluation. Limitations: no limitations Course Vital Signs 09/17/18 09/17/18 09/17/18 04:37 06:20 07:26 Temperature 97.6 F Pulse Rate 104 H 69 102 H Respiratory 20 18 22 Rate Blood Pressure 121/79 100/69 94/62 O2 Sat by Pulse 96 89 L 99 Oximetry 09/17/18 09/17/18 07:43 07:51 Temperature 97.8 F 97.8 F Pulse Rate 71 102 H Respiratory 18 22 Rate Blood Pressure 70/30 93/69 O2 Sat by Pulse 90 L Oximetry Medical Decision Making - Medical Decision Making She was seen and evaluated, history is obtained from the patient has been at bedside and review of medical record Upon arrival patient had relatively brisk bleeding from the right nares Immediately a nose clamp was applied while supplies were collected for packing Posterior packing was applied to the right nares Labs were obtained IV TXA ordered and infusion began Despite packing and TXA patient continues to bleed Packing removed, large clot was evacuated, Afrin spray up bilateral nostrils, posterior packing was soaked in topical lido with epinephrine and re-inserted into the nostril Patient continued to bleed Dr Aguilar was consulted and recommended left sided posterior packing Sided posterior packing was applied, however patient was noted to have some dysrhythmia on the night monitor and become bradycardic therefore both packing were deflated EKG was obtained due to the change in rhythm on the monitor EKG was obtained at 6:35 AM, rate is 99 rhythm is wide complex regular with right bundle branch block and T-wave inversions laterally Decision was made to remove left-sided packing and deflated the packing on the right due to dysrhythmia and hypotension concern for vagal effect Dr. Aguilar was updated and will come to bedside to evaluate patient Dr. Aguilar bedside, attempted repeat posterior packing, patient became pale and diaphoretic, decision was made to begin transfusion Patient consented to transfusion, 2 units packed red blood cells and a unit of fresh frozen plasma were ordered A was contacted with plan to take the patient to the OR for evaluation under anesthesia Topical Lido and Floseal were ordered and administered by Dr. Aguilar who after significant effort was successful in obtaining hemostasis at which time he decided patient was stable for admission to the selective unit - Lab Data Result diagrams: 09/17/18 05:15 09/17/18 05:15 Lab Results 09/17/18 09/17/18 09/17/18 Range/Units 05:15 05:15 05:15 WBC 7.2 (3.8-10.6) k/uL RBC 3.88 (3.80-5.40) m/uL Hgb 12.1 (11.4-16.0) gm/dL Hct 38.9 (34.0-46.0) % MCV 100.3 H (80.0-100.0) fL MCH 31.1 (25.0-35.0) pg MCHC 31.0 (31.0-37.0) g/dL RDW 15.9 H (11.5-15.5) % Plt Count 252 (150-450) k/uL Neutrophils % 64 % Lymphocytes % 28 % Monocytes % 3 % Eosinophils % 2 % Basophils % 1 % Neutrophils # 4.6 (1.3-7.7) k/uL Lymphocytes # 2.0 (1.0-4.8) k/uL Monocytes # 0.2 (0-1.0) k/uL Eosinophils # 0.1 (0-0.7) k/uL Basophils # 0.0 (0-0.2) k/uL Hypochromasia Slight Macrocytosis Slight PT 11.1 (9.0-12.0) sec INR 1.0 (<1.2) APTT 23.5 (22.0-30.0) sec Sodium 140 (137-145) mmol/L Potassium 4.6 (3.5-5.1) mmol/L Chloride 107 (98-107) mmol/L Carbon Dioxide 20 L (22-30) mmol/L Anion Gap 13 mmol/L BUN 32 H (7-17) mg/dL Creatinine 1.16 H (0.52-1.04) mg/dL Est GFR (CKD-EPI)AfAm 56 (>60 ml/min/1.73 sqM) Est GFR (CKD-EPI)NonAf 48 (>60 ml/min/1.73 sqM) Glucose 152 H (74-99) mg/dL Calcium 9.3 (8.4-10.2) mg/dL Total Bilirubin 0.7 (0.2-1.3) mg/dL AST 34 (14-36) U/L ALT 29 (9-52) U/L Alkaline Phosphatase 110 (38-126) U/L Total Protein 6.9 (6.3-8.2) g/dL Albumin 4.1 (3.5-5.0) g/dL Critical Care Time Critical Care Time: Yes Total Critical Care Time: 120 Critical Care Time: Critical Care Time Critical care time was exclusive of separately billable procedures and treating other patients and teaching time. Critical care was necessary to treat or prevent imminent or life-threatening deterioration. Given the critical condition in which the patient arrived, the patient was imm ediately assessed by myself and the nurse, and cardiac monitoring initiated due to the potential for rapid decompensation of the patient's clinical condition. During the course of the patients stay, I spent a considerable amount of time at the bedside performing serial re-evaluations of the patient's hemodynamic and clinical status because of the recognized potential threat to life or limb in this condition. I then had a chance to review not only all of the available current laboratory and radiographic studies obtained today, but I also reviewed old records available to me at the time. Additionally, any ancillary information available including tow truck driver records were reviewed. Sequential vital signs were obtained. Disposition Clinical Impression: Posterior epistaxis Disposition: ADMITTED IP TO THIS [facility] Condition: Serious
[2018-09-17 05:35] LABS: Basophils % (A) 1 %; Eosinophils # (A) 0.1 k/uL (0-0.7); Eosinophils % (A) 2 %; HCT 38.9 % (34.0-46.0); HGB 12.1 gm/dL (11.4-16.0); Hypochromasia Slight; Lymphocytes % (A) 28 %; MCH 31.1 pg (25.0-35.0); MCV 100.3 fL (80.0-100.0); Macrocytosis Slight; Mean Platelet Volume 6.9; Monocytes # (A) 0.2 k/uL (0-1.0); Monocytes % (A) 3 %; Neutrophils # (A) 4.6 k/uL (1.3-7.7); Neutrophils % (A) 64 %; Platelet Count 252 k/uL (150-450); RBC 3.88 m/uL (3.80-5.40); RDW 15.9 % (11.5-15.5); WBC 7.2 k/uL (3.8-10.6)
[2018-09-17 05:43] LABS: Partial Thromboplastin Time 23.5 sec (22.0-30.0); Prothrombin Time 11.1 sec (9.0-12.0)
[2018-09-17 05:48] LABS: Albumin 4.1 g/dL (3.5-5.0); Calcium 9.3 mg/dL (8.4-10.2); Potassium 4.6 mmol/L (3.5-5.1); Total Bilirubin 0.7 mg/dL (0.2-1.3); Total Protein 6.9 g/dL (6.3-8.2)
[2018-09-17] MEDS ORDERED: OXYMETAZOLINE 0.05% NASL SPRAY 1 SPRAY BOTTLE NASAL STA (05:53)
[2018-09-17] MEDS ORDERED: LIDOCAINE 1%-EPI 1:100,000 20 ML VIAL SUBMUCOSAL STA (05:53)
[2018-09-17] MEDS: SODIUM CHLORIDE 0.9% 1,000 ML IV SCH ×2 (06:37→08:41)
[2018-09-17] MEDS ORDERED: TETRACAINE 1% 10 MG/ML 2 ML AMP MISCELLANE STA ×2 (07:14→07:24)
--- NOTE | 2018-09-17 08:25 | P.GSCN ---
History of Present Illness Consult date: 09/17/18 Reason for Consult: Massive epistaxis right posterior with blood loss anemia Requesting physician: Judy Flores History of present illness: This is a 68-year-old white female who a month ago had an epistaxis and went to [facility] emergency room and was treated. Late last night she started having some further bleeding.. the bleeding persisted and her brought her to the emergency room. She was seen in the emergency room by Dr. Flores. Her vital signs were stable although she was having some arrhythmias. Dr. Flores placed several packings and her nose including an inflatable double- lumen Rhino Rocket. Unfortunately she was still bleeding through the Rhino Rocket and I was called for control of this persistent epistaxis. The patient's been placed on Plavix for a peripheral leg stent. I utilized topical oxymetazoline with no effect. A 10 cm Merocel sponge pack had no effect. A double-lumen Rhino Rocket had no effect. When Dr. Flores utilized bilateral Rhino Rockets she developed some arrhythmic issues. Therefore, a utilized FloSeal intranasally and that worked quite well. the bleeding stopped. The patient's eye conjunctiva is extremely pale and with the massive amount of bleeding that occurred here in the emergency room I ordered 2 units of blood. I recommended that this patient be admitted for observation to the select care unit. The intensive care unit is full and is unable to accommodate us. A hospitalist will be counseled. Observation for over 1 hour showed no further bleeding. She is to rest with her head elevated and she is not to blow her nose. She has been instructed not to blow her nose for the next 3 days. Review of Systems - Constitutional Denies chronic headaches - EENT Eyes: right as per HPI Ears: deny: decreased hearing Ears, nose, mouth and throat: Denies ant. neck pain - Cardiovascular Denies chest pain - Respiratory Denies cough with sputum - Gastrointestinal Denies belching - Genitourinary Genitourinary: Denies dysmenorrhea Menstruation: Reports as per HPI - Musculoskeletal Denies arm numbness/tingling - Integumentary Denies boils - Neurological Denies ataxia - Psychiatric Denies anxiety attacks - Endocrine Denies cold intolerance - Hematologic/Lymphatic Reports easy bleeding, Reports easy bruising - Allergic/Immunologic Denies allergic rhinitis Past Medical History Past Medical History: COPD, Myocardial Infarction ([place]) Last Myocardial Infarction Date:: 01/2018 History of Any Multi-Drug Resistant Organisms: None Reported Past Surgical History: Heart Catheterization With Stent Additional Past Surgical History / Comment(s): Open heart surgery, defibrilator placement Past Anesthesia/Blood Transfusion Reactions: No Reported Reaction Date of Last Stent Placement:: unknown Past Psychological History: No Psychological Hx Reported Smoking Status: Current some day smoker Past Alcohol Use History: Rare Past Drug Use History: None Reported - Past Family History Mother Sister(s) Family Medical History: Coronary Artery Disease (CAD), Dementia, Diabetes Mellitus Additional Family Medical History / Comment(s): CABG, alzheimers Father Family Medical History: Coronary Artery Disease (CAD), Diabetes Mellitus Medications and Allergies Home Medications Medication Instructions Recorded Confirmed Type Atorvastatin [Lipitor] 80 mg PO HS 07/08/16 09/17/18 History Metoprolol Tartrate 25 mg PO BID 07/08/16 09/17/18 History Midodrine HCl [ProAmantine] 2.5 mg PO BID PRN 07/21/18 09/17/18 History Aspirin EC [Ecotrin Low Dose] 81 mg PO DAILY 09/17/18 09/17/18 History Clopidogrel [Plavix] 75 mg PO DAILY 09/17/18 09/17/18 History Allergies Allergy/AdvReac Type Severity Reaction Status Date / Time No Known Allergies Allergy Verified 09/17/18 07:02 Surgical - Exam Osteopathic Statement: *. No significant issues noted on an osteopathic structural exam other than those noted in the History and Physical/Consult. Vital Signs Temp Pulse Resp BP Pulse Ox 97.6 F 104 H 20 121/79 96 09/17/18 04:37 09/17/18 04:37 09/17/18 04:37 09/17/18 04:37 09/17/18 04:37 - General well developed, well nourished, moderate distress - Eyes Conjunctivae is pale PERRL, normal ocular movement - ENT ENT examination unremarkable except for brisk posterior bleeding on the right side - Neck no masses - Respiratory normal expansion - Integumentary no rash - Neurologic normal coordination, normal sensation - Musculoskeletal normal gait, normal posture - Psychiatric oriented to time, oriented to person, oriented to place, speech is normal, memory intact Results - Labs 09/17/18 05:15 09/17/18 05:15 Abnormal Lab Results - Last 24 Hours (Table) 09/17/18 09/17/18 Range/Units 05:15 05:15 MCV 100.3 H (80.0-100.0) fL RDW 15.9 H (11.5-15.5) % Carbon Dioxide 20 L (22-30) mmol/L BUN 32 H (7-17) mg/dL Creatinine 1.16 H (0.52-1.04) mg/dL Glucose 152 H (74-99) mg/dL Diabetes panel 09/17/18 Range/Units 05:15 Sodium 140 (137-145) mmol/L Potassium 4.6 (3.5-5.1) mmol/L Chloride 107 (98-107) mmol/L Carbon Dioxide 20 L (22-30) mmol/L BUN 32 H (7-17) mg/dL Creatinine 1.16 H (0.52-1.04) mg/dL Glucose 152 H (74-99) mg/dL Calcium 9.3 (8.4-10.2) mg/dL AST 34 (14-36) U/L ALT 29 (9-52) U/L Alkaline Phosphatase 110 (38-126) U/L Total Protein 6.9 (6.3-8.2) g/dL Albumin 4.1 (3.5-5.0) g/dL Calcium panel 09/17/18 Range/Units 05:15 Calcium 9.3 (8.4-10.2) mg/dL Albumin 4.1 (3.5-5.0) g/dL Pituitary panel 09/17/18 Range/Units 05:15 Sodium 140 (137-145) mmol/L Potassium 4.6 (3.5-5.1) mmol/L Chloride 107 (98-107) mmol/L Carbon Dioxide 20 L (22-30) mmol/L BUN 32 H (7-17) mg/dL Creatinine 1.16 H (0.52-1.04) mg/dL Glucose 152 H (74-99) mg/dL Calcium 9.3 (8.4-10.2) mg/dL Adrenal panel 09/17/18 Range/Units 05:15 Sodium 140 (137-145) mmol/L Potassium 4.6 (3.5-5.1) mmol/L Chloride 107 (98-107) mmol/L Carbon Dioxide 20 L (22-30) mmol/L BUN 32 H (7-17) mg/dL Creatinine 1.16 H (0.52-1.04) mg/dL Glucose 152 H (74-99) mg/dL Calcium 9.3 (8.4-10.2) mg/dL Total Bilirubin 0.7 (0.2-1.3) mg/dL AST 34 (14-36) U/L ALT 29 (9-52) U/L Alkaline Phosphatase 110 (38-126) U/L Total Protein 6.9 (6.3-8.2) g/dL Albumin 4.1 (3.5-5.0) g/dL Assessment and Plan (1) Epistaxis, recurrent Current Visit: Yes Status: Acute Code(s): R04.0 - EPISTAXIS SNOMED Code(s): 517848992 (2) Posterior epistaxis Current Visit: Yes Status: Acute Code(s): R04.0 - EPISTAXIS SNOMED Code(s): 305558413 Plan: After several attempts at packing the utilization of FloSeal worked well for control of this relatively massive epistaxis. We will hospitalize this patient for observation. Blood products will be given. Patient has some underlying arrhythmias which will be observed. If the patient has any further bleeding I've instructed the nursing staff to call me immediately. Patient is to rest with head elevated and is not to blow her nose for 3 days. Time with Patient: Greater than 30
--- NOTE | 2018-09-17 08:28 | P.OP ---
Date of Procedure: 09/17/18 Preoperative Diagnosis: Massive right-sided posterior epistaxis Postoperative Diagnosis: Same Procedure(s) Performed: Control of right-sided epistaxis, posterior Anesthesia: other (Topical) Surgeon: Reid Deleon Estimated Blood Loss (ml): 400 Pathology: none sent Condition: stable Disposition: other (select care) Indications for Procedure: This patient had a brisk and massive epistaxis on the right side. Emergency room physician tried several packings which were not successful. I was called to control this right-sided posterior epistaxis Operative Findings: Massive bleeding from the nose from a posterior site on the right side Description of Procedure: This patient was placed in a upright position at a 90 angle. The nose was packed with a Rhino Rocket which was not successful. The Rhino Rocket was removed and a Merocel sponge pack was placed utilizing 8 cm which was unsuccessful then later a 10 cm pack which was unsuccessful. 2 inch iodoform gauze was used to pack the nose with focus on the superior portion of the nose which was unsuccessful. I then utilized 20 mL of FloSeal which worked quite well to control his epistaxis. Patient will be admitted for observation and observed. Patient lost approximately 400-500 mL prior to me seeing the patient and lost another several 100 mL while attempting to control his epistaxis. Blood products will be given as the conjunctiva I is extremely pale. She'll be held for observation and the nursing staff is to call me if the bleeding should return.
[2018-09-17] MEDS ORDERED: SODIUM CHLORIDE 0.9% 500 ML 500 ML IV ONE (09:29)
[2018-09-17] MEDS ORDERED: MIDODRINE 5 MG TAB PO PRN (11:59)
[2018-09-17] MEDS: METOPROLOL TARTRATE 25 MG TAB PO SCH ×2 (12:26→20:25)
[2018-09-17 12:32] VITALS: BMI 24.3
--- NOTE | 2018-09-17 12:42 | P.HPIM ---
History of Present Illness H&P Date: 09/17/18 This is a 68-year-old female patient of Dr. Campoverde with a past medical history of coronary artery disease status post 3 vessel CABG followed by heart catheterization with stent placement, ischemic cardiomyopathy status post AICD in June 2016, severe peripheral vascular disease status post bilateral stenting of the lower extremities, carotid artery disease status post right carotid endarterectomy, remote history of tobacco use and dependence, COPD. Patient had stent placement on the bilateral lower extremities by Dr. Kendall Espinal. She is to be on Plavix until January. She has history of being here on July 21 for epistaxis right-sided for which she was admitted to the observation unit under the care of Dr. Benitez. Her bleeding was controlled and patient was discharged home with Keflex, Diflucan and follow up with Dr. Benitez. Patient gives history that she had sudden onset of nosebleed yesterday in the evening and she was swallowing blood and decided to come into the hospital for evaluation. The ER physician did apply double lumen Rhino Rocket with no effect and when bilateral Rhino Rocket's were placed she developed arrhythmic issues. Dr. Rasmussenider been utilized FloSeal intranasal device and the bleeding was controlled. She apparently had a massive amount of bleeding in the emergency center and then to be admitted to be monitored. Aspirin and Plavix on hold. Review of Systems All systems: negative Constitutional: Reports fatigue, Denies anorexia, Denies chills, Denies fever, Denies malaise, Denies poor appetite, Denies weakness Eyes: denies blurred vision, denies pain Ears, nose, mouth and throat: Reports epistaxis, Denies dysphagia, Denies headache, Denies hoarseness, Denies nasal congestion, Denies nasal discharge, D enies sore throat, Denies vertigo Cardiovascular: Denies chest pain, Denies decreased exercise tolerance, Denies dyspnea on exertion, Denies edema, Denies leg edema, Denies shortness of breath, Denies syncope Respiratory: Denies cough, Denies cough with sputum, Denies dyspnea, Denies excessive sputum, Denies hemoptysis, Denies home oxygen, Denies wheezing Gastrointestinal: Denies abdominal pain, Denies diarrhea, Denies nausea, Denies vomiting Genitourinary: Denies dysuria, Denies hematuria, Denies urgency, Denies urinary frequency Musculoskeletal: Denies frequent falls, Denies gait dysfunction, Denies muscle weakness, Denies myalgias Integumentary: Denies pruritus, Denies rash, Denies unusual bruising, Denies wounds Neurological: Denies aphasia, Denies change in mentation, Denies change in speech, Denies numbness, Denies seizures, Denies vertigo, Denies weakness Psychiatric: Denies anxiety, Denies depression Endocrine: Denies fatigue, Denies weight change Past Medical History Past Medical History: COPD, Myocardial Infarction ([place]) Last Myocardial Infarction Date:: 01/2018 History of Any Multi-Drug Resistant Organisms: None Reported Past Surgical History: Heart Catheterization With Stent Additional Past Surgical History / Comment(s): Open heart surgery, defibrilator placement Past Anesthesia/Blood Transfusion Reactions: No Reported Reaction Date of Last Stent Placement:: unknown Past Psychological History: No Psychological Hx Reported Smoking Status: Current some day smoker Past Alcohol Use History: Rare Additional Past Alcohol Use History / Comment(s): The patient is a smoker of one pack per day for 45 years and quit 10 years ago. She drinks an occasional beer. Past Drug Use History: None Reported - Past Family History Mother Sister(s) Family Medical History: Coronary Artery Disease (CAD), Dementia, Diabetes Mellitus Additional Family Medical History / Comment(s): Mother at age 82 with Alzheimer's dementia with history of coronary artery disease and diabetes Father Family Medical History: Coronary Artery Disease (CAD), Diabetes Mellitus Additional Family Medical History / Comment(s): Father at age 85 from a ruptured aortic aneurysm. Brother(s) Additional Family Medical History / Comment(s): The patient has 1 brother with no major medical problems, one sister with no major medical problems. Patient has 3 children: one son with testicular cancer, one daughter with MS and one son with no major medical problems. Medications and Allergies Home Medications Medication Instructions Recorded Confirmed Type Atorvastatin [Lipitor] 80 mg PO HS 07/08/16 09/17/18 History Metoprolol Tartrate 25 mg PO BID 07/08/16 09/17/18 History Midodrine HCl [ProAmantine] 2.5 mg PO BID PRN 07/21/18 09/17/18 History Aspirin EC [Ecotrin Low Dose] 81 mg PO DAILY 09/17/18 09/17/18 History Clopidogrel [Plavix] 75 mg PO DAILY 09/17/18 09/17/18 History Allergies Allergy/AdvReac Type Severity Reaction Status Date / Time No Known Allergies Allergy Verified 09/17/18 07:02 Physical Exam Vitals: Vital Signs Temp Pulse Resp BP Pulse Ox 09/17/18 10:24 91 18 103/74 95 09/17/18 10:09 107/71 09/17/18 09:56 16 112/80 09/17/18 09:40 98.4 F 95 18 111/67 95 09/17/18 09:30 98.3 F 87 18 102/68 91 L 09/17/18 09:10 79/50 09/17/18 09:02 98.0 F 84 16 79/50 92 L 09/17/18 08:52 98.0 F 92 16 80/59 93 L 09/17/18 08:28 97.9 F 87 16 101/80 96 09/17/18 08:25 67 16 97/79 96 09/17/18 08:16 98.1 F 65 16 82/65 09/17/18 08:04 20 87/62 94 L 09/17/18 08:03 97.7 F 99 16 87/62 93 L 09/17/18 07:53 98.3 F 101 H 20 76/60 09/17/18 07:51 97.8 F 102 H 22 93/69 09/17/18 07:43 97.8 F 71 18 70/30 90 L 09/17/18 07:26 102 H 22 94/62 99 09/17/18 06:20 69 18 100/69 89 L 09/17/18 04:37 97.6 F 104 H 20 121/79 96 Intake and Output 09/16/18 09/17/18 09/17/18 22:59 06:59 14:59 Intake Total 929 Balance 929 Intake: Blood Product 929 Ffp 24 Cpd Unit 309 [id number] Rc Cpda-1 Unit 310 [id number] Rc Pheresis 2 As3 Unit 310 [id number] Other: Weight 60.328 kg Gen: This is a 68-year-old female. Patient is resting in the ER stretcher and appears to be comfortable at this time. HEENT: Head is atraumatic, normocephalic. Pupils equal, round. Sclerae is anicteric. Large packing device in her nares. NECK: Supple. No JVD. No lymphadenopathy. No thyromegaly. LUNGS: Clear to auscultation. No wheezes or rhonchi. No intercostal retractions. HEART: Regular rate and rhythm. No murmur. ABDOMEN: Soft. Bowel sounds are present. No masses. No tenderness. EXTREMITIES: No pedal edema. No calf tenderness. NEUROLOGICAL: Patient is awake, alert and oriented x3. Cranial nerves 2 through 12 are grossly intact. Results CBC & Chem 7: 09/17/18 05:15 09/17/18 05:15 Labs: Abnormal Lab Results - Last 24 Hours (Table) 09/17/18 09/17/18 09/17/18 Range/Units 05:15 05:15 07:49 MCV 100.3 H (80.0-100.0) fL RDW 15.9 H (11.5-15.5) % Carbon Dioxide 20 L (22-30) mmol/L BUN 32 H (7-17) mg/dL Creatinine 1.16 H (0.52-1.04) mg/dL Glucose 152 H (74-99) mg/dL Crossmatch See Detail Thrombosis Risk Factor Assmnt - DVT/VTE Prophylaxis DVT/VTE Prophylaxis: Mechanical Prophylaxis ordered Assessment and Plan Plan: 1. Epistaxis status post acute blood loss status post FloSeal intranasal device. Consult with Dr. Deleon appreciated. Patient is to not blow her nose for 3 days. Head of bed to be elevated. Hold aspirin and Plavix. 2. Peripheral vascular disease status post stenting done by Dr. Kendall fuentesly and Teddy. Plavix held. 3. Coronary artery disease status post three-vessel CABG and stenting, stable continue Lopressor 25 mg twice daily. Aspirin and Plavix on hold. Continue Lipitor. 4. Hyperlipidemia. Continue Lipitor 80 mg at bedtime. 5. Remote history of tobacco use, stable. 6. Ischemic cardiomyopathy status post AICD. 7. History of carotid stenosis status post right carotid endarterectomy 8. DVT prophylaxis. Early ambulation. 9. GI prophylaxis. Pepcid. Patient placed as an observation status. Plan discharge home tomorrow. Discharge plan: home Impression and plan of care have been directed as dictated by the signing physician. Precious Swan nurse practitioner acting as scribe for signing physician.
[2018-09-17 14:06] LABS: Anisocytosis Slight; HCT 39.8 % (34.0-46.0); HGB 11.9 gm/dL (11.4-16.0); Hypochromasia Marked; MCH 30.7 pg (25.0-35.0); MCV 102.3 fL (80.0-100.0); Macrocytosis Moderate; Mean Platelet Volume 6.9; Platelet Count 194 k/uL (150-450); RBC 3.89 m/uL (3.80-5.40); RDW 16.7 % (11.5-15.5); WBC 8.8 k/uL (3.8-10.6)
[2018-09-17] MEDS ORDERED: ATORVASTATIN 80 MG TAB PO SCH (21:00)
[2018-09-18 00:25] VITALS: TEMP 98.7
[2018-09-18] MEDS: SODIUM CHLORIDE 0.9% 1,000 ML IV SCH ×2 (04:59→10:05)
[2018-09-18 06:43] LABS: Anisocytosis Slight; HCT 36.6 % (34.0-46.0); HGB 11.2 gm/dL (11.4-16.0); Hypochromasia Slight; MCH 30.3 pg (25.0-35.0); MCHC 30.5 g/dL (31.0-37.0); MCV 99.4 fL (80.0-100.0); Macrocytosis Slight; Mean Platelet Volume 6.8; Platelet Count 190 k/uL (150-450); RBC 3.68 m/uL (3.80-5.40); RDW 16.8 % (11.5-15.5)
[2018-09-18 06:54] LABS: African American GFR (CKD) >90 (>60 ml/min/1.73 sqM); Anion Gap 8 mmol/L; Blood Urea Nitrogen 31 mg/dL (7-17); Calcium 9.1 mg/dL (8.4-10.2); Carbon Dioxide 24 mmol/L (22-30); Chloride 108 mmol/L (98-107); Glucose 95 mg/dL (74-99); Potassium 3.8 mmol/L (3.5-5.1); Sodium 140 mmol/L (137-145)
[2018-09-18 07:44] VITALS: BP 119/55; PULSE 60; RESP 60
[2018-09-18] MEDS ORDERED: FAMOTIDINE 20 MG TAB PO SCH (09:00)
[2018-09-18] MEDS: METOPROLOL TARTRATE 25 MG TAB PO SCH (10:04)
--- NOTE | 2018-09-18 13:36 | P.DS ---
Providers Date of admission: 09/17/18 06:25 Expected date of discharge: 09/18/18 Attending physician: Tay Monroy Consults: 09/17/18 06:24 Consult Physician Stat Consulting Provider: Reid Deleon Reason/Comments: EPISTAXIS Do you want consulting provider notified?: Already Contacted Primary care physician: Hieu LoepzGilles Lds Hospital Course: This is a 68-year-old female patient of Dr. Campoverde with a past medical history of coronary artery disease status post 3 vessel CABG followed by heart catheterization with stent placement, ischemic cardiomyopathy status post AICD in June 2016, severe peripheral vascular disease status post bilateral stenting of the lower extremities, carotid artery disease status post right carotid endarterectomy, remote history of tobacco use and dependence, COPD. Patient had stent placement on the bilateral lower extremities by Dr. Kendall Espinal. She is to be on Plavix until January. She has history of b eing here on July 21 for epistaxis right-sided for which she was admitted to the observation unit under the care of Dr. Benitez. Her bleeding was controlled and patient was discharged home with Keflex, Diflucan and follow up with Dr. Benitez. Patient gives history that she had sudden onset of nosebleed yesterday in the evening and she was swallowing blood and decided to come into the hospital for evaluation. The ER physician did apply double lumen Rhino Rocket with no effect and when bilateral Rhino Rocket's were placed she developed arrhythmic issues. Dr. Aguilar been utilized FloSeal intranasal device and the bleeding was controlled. She apparently had a massive amount of bleeding in the emergency center and then to be admitted to be monitored. Aspirin and Plavix on hold. 09/18: Hemoglobin is 11.2. Patient has been hemodynamically stable with blood pressure 119/55, heart rate 60, afebrile, pulse ox 95-100% on room air. ekg monitor tech has been a sinus rhythm. No active epistaxis. Patient will be discharged home today in stable condition. Discharge diagnoses: 1. Epistaxis status post acute blood loss status post FloSeal intranasal device . 2. Peripheral vascular disease status post stenting done by Dr. Argueta at [facility]. 3. Coronary artery disease status post three-vessel CABG and stenting, stable 4. Hyperlipidemia. 5. Remote history of tobacco use, stable. 6. Ischemic cardiomyopathy status post AICD. 7. History of carotid stenosis status post right carotid endarterectomy Discharge plan: home Impression and plan of care have been directed as dictated by the signing physician. Precious Swan nurse practitioner acting as scribe for signing physician. Patient Condition at Discharge: Good Plan - Discharge Summary Discharge Rx Participant: No New Discharge Prescriptions: Continue Metoprolol Tartrate 25 mg PO BID Atorvastatin [Lipitor] 80 mg PO HS Midodrine HCl [ProAmantine] 2.5 mg PO BID PRN PRN Reason: Blood Pressure - Low Discontinued Clopidogrel [Plavix] 75 mg PO DAILY Aspirin EC [Ecotrin Low Dose] 81 mg PO DAILY Discharge Medication List Atorvastatin [Lipitor] 80 mg PO HS 07/08/16 [History] Metoprolol Tartrate 25 mg PO BID 07/08/16 [History] Midodrine HCl [ProAmantine] 2.5 mg PO BID PRN 07/21/18 [History] Follow up Appointment(s)/Referral(s): Reid Deleon DO [Doctor of Osteopathic Medicine] - 09/21/18 11:00 am (Monday with [employer]) Hieu Campoverde DO [Primary Care Provider] - 1 Week (Spoke to [employer] spring winder. Office will call with appointment time) Adelso Diaz MD [STAFF PHYSICIAN] - 09/26/18 2:00 pm (Monday) Patient Instructions/Handouts: Nosebleed (GEN) Activity/Diet/Wound Care/Special Instructions: rest with head elevated [id number]. Sleep in a recliner with her head elevated. Do not blow your nose for 1 week No heavy lifting or bending Return to the emergency room if excessive bleeding noted Discharge Disposition: HOME SELF-CARE
== END 2018-09-18 11:45 | disposition home or self-care (01) ==
LOC: EC 04:31 → 4SSUR 06:25 → 3NMEDONC 06:39 → 2SICU 07:28 → 3SCARD 10:44
PROVIDERS: ADMIT Internal Medicine; ATTEND Internal Medicine
DX: R04.0 Epistaxis (principal); I73.9 Peripheral vascular disease, unspecified; Z95.820 Peripheral vascular angioplasty status with implants and grafts; Z95.1 Presence of aortocoronary bypass graft; Z95.5 Presence of coronary angioplasty implant and graft; I25.10 Atherosclerotic heart disease of native coronary artery without angina pectoris; D50.0 Iron deficiency anemia secondary to blood loss (chronic); R00.1 Bradycardia, unspecified; I45.10 Unspecified right bundle-branch block; I95.9 Hypotension, unspecified; R61 Generalized hyperhidrosis; E78.5 Hyperlipidemia, unspecified; Z95.810 Presence of automatic (implantable) cardiac defibrillator; I25.5 Ischemic cardiomyopathy; J44.9 Chronic obstructive pulmonary disease, unspecified; I25.2 Old myocardial infarction; Z87.891 Personal history of nicotine dependence; Z79.899 Other long term (current) drug therapy; Z79.82 Long term (current) use of aspirin; Z79.02 Long term (current) use of antithrombotics/antiplatelets; Z83.3 Family history of diabetes mellitus; Z82.49 Family history of ischemic heart disease and other diseases of the circulatory system; Z82.0 Family history of epilepsy and other diseases of the nervous system; Z81.8 Family history of other mental and behavioral disorders; Z80.43 Family history of malignant neoplasm of testis; Z84.89 Family history of other specified conditions
CPT/HCPCS: 30905; 36430; 36415; 93005; 86900; 86901; 80053; 80048; 85025; 85027 ×2; 85610; 85730; 86850; 86920; G0378 ×3; P9016; P9059; 96365; 99284